=== PATIENT | male | born 2000 | race Two or more races ===

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

== ENCOUNTER 2022-04-24 09:15 | Emergency (ER) | payer MEDICAID, OTHER ==
[~2022-04-24] VITALS: Ht 170.2 cm; Wt 71.6 kg
[2022-04-24 11:22] VITALS: BP 136/78
== END 2022-04-24 11:52 | disposition home or self-care (01) ==
LOC: ER 09:19
DX: S83.91XA Sprain of unspecified site of right knee, initial encounter (principal); S00.83XA Contusion of other part of head, initial encounter; V49.49XA Driver injured in collision with other motor vehicles in traffic accident, initial encounter; Y93.89 Activity, other specified; Y92.410 Unspecified street and highway as the place of occurrence of the external cause; Y99.8 Other external cause status
CPT/HCPCS: 73562